=== PATIENT | female | born 1980 | race Caucasian/White ===

== ENCOUNTER 2018-04-14 16:03 | Emergency (ER) | payer MEDICAID, OTHER ==
[~2018-04-14] VITALS: Ht 157.5 cm; Wt 62.0 kg
[~2018-04-14 16:03] MED LIST: NO HOME MEDS; PHEN-786 PO
[2018-04-14 16:15] VITALS: BP 129/78
--- NOTE | 2018-04-14 16:27 | NUR ---
PT EVALUATED IN TRIAGE BY FIORDALIZA GARG, PT PROVIDED URINE SAMPLE, BROUGHT DOWN TO LAB BY NIK LAMB AND WILL WAIT IN LOBBY FOR DISCHARGE PAPERWORK AND INSTRUCTIONS.
[2018-04-14 16:42] LABS: URINE HCG NEGATIVE (NEG)
[2018-04-14 16:52] LABS: UA COLLECTION TYPE CLN CATCH MIDSTREAM
[2018-04-14 16:53] LABS: CLARITY,URINE CLEAR (Clear); COLOR,URINE ORANGE (Yellow)
[2018-04-14] MEDS ORDERED: CEPH-572 PO (16:56)
[2018-04-14 17:07] LABS: SQUAMOUS EPITHELIAL CELL,UR FEW /LPF (FEW)
[2018-04-14 17:08] LABS: BACTERIA,URINE FEW /HPF (Neg); RBC,URINE NONE SEEN /HPF (0-2)
== END 2018-04-14 17:22 | disposition home or self-care (01) ==
LOC: ER 16:03
DX: N39.0 Urinary tract infection, site not specified (principal); F15.90 Other stimulant use, unspecified, uncomplicated; F11.90 Opioid use, unspecified, uncomplicated; F19.90 Other psychoactive substance use, unspecified, uncomplicated; Z88.8 Allergy status to other drugs, medicaments and biological substances
CPT/HCPCS: 81001; 81025; 87077; 87088; 87186; 99283

== ENCOUNTER 2018-04-17 21:05 | Emergency (ER) | payer OTHER ==
[~2018-04-17] VITALS: Ht 157.5 cm; Wt 62.0 kg
[~2018-04-17 21:05] MED LIST changes: +CEPH-572 PO
[2018-04-17 21:18] VITALS: BP 131/89
[2018-04-17] MEDS ORDERED: CIPR-259 PO (22:17)
== END 2018-04-17 22:36 | disposition home or self-care (01) ==
LOC: ER 21:06
DX: N39.0 Urinary tract infection, site not specified (principal); F15.90 Other stimulant use, unspecified, uncomplicated; F11.90 Opioid use, unspecified, uncomplicated; Z88.8 Allergy status to other drugs, medicaments and biological substances; Z79.899 Other long term (current) drug therapy
CPT/HCPCS: 99283

== ENCOUNTER 2020-01-20 08:52 | Emergency (ER) | payer MEDICAID ==
[~2020-01-20] VITALS: Ht 157.5 cm; Wt 67.0 kg
[~2020-01-20 08:52] MED LIST changes: -CEPH-572 PO
[2020-01-20 08:57] VITALS: BP 166/103
[2020-01-20] MEDS ORDERED: acetaminophen 325mg tablet PO ONE (09:35)
[2020-01-20 09:59] LABS: CLARITY,URINE CLEAR (Clear); COLOR,URINE STRAW (Yellow); GLUCOSE, URINE NEGATIVE (Neg); KETONES,URINE NEGATIVE (Neg); LEUKOCYTE ESTERASE ,URINE NEGATIVE (Neg); NITRITES, URINE NEGATIVE (Neg); OCCULT BLOOD,URINE NEGATIVE (Neg); PROTEIN,URINE NEGATIVE (Neg); UROBILINOGEN,URINE 0.2 E.U/dL (0.2-1.0)
[2020-01-20] MEDS ORDERED: azithromycin 250mg tablet PO ONE (10:00)
[2020-01-20] MEDS ORDERED: CefTRIAXone 250MG IM Kit w/LIDOcaine IM ONE (10:00)
[2020-01-20 10:03] LABS: URINE HCG NEGATIVE (NEG)
[2020-01-20 10:04] LABS: UA COLLECTION TYPE CLN CATCH MIDSTREAM
[2020-01-20 10:22] LABS: URINE AMPHETAMINE SCREEN POSITIVE (Neg); URINE BARBITUATE SCREEN NEGATIVE (Neg); URINE BENZODIAZEPINES SCREEN NEGATIVE (Neg); URINE CANNABINOID SCREEN NEGATIVE (Neg); URINE COCAINE SCREEN NEGATIVE (Neg); URINE METHADONE SCREEN NEGATIVE (Neg); URINE OPIATE SCREEN POSITIVE (Neg); URINE PHENCYCLIDINE SCREEN NEGATIVE (Neg)
[2020-01-20] MEDS ORDERED: DOXY100C2 PO (10:23)
== END 2020-01-20 10:39 | disposition home or self-care (01) ==
LOC: ER 08:52
DX: N73.9 Female pelvic inflammatory disease, unspecified (principal); R10.30 Lower abdominal pain, unspecified; F41.9 Anxiety disorder, unspecified; F15.90 Other stimulant use, unspecified, uncomplicated; F11.90 Opioid use, unspecified, uncomplicated; F19.90 Other psychoactive substance use, unspecified, uncomplicated; Z86.19 Personal history of other infectious and parasitic diseases; Z87.440 Personal history of urinary (tract) infections; Z72.89 Other problems related to lifestyle; Z88.6 Allergy status to analgesic agent; Z79.2 Long term (current) use of antibiotics
CPT/HCPCS: 80305; 81003; 81025; 87210; 96372; 99283; J0696; Q0112; 36415; 87491

== ENCOUNTER 2020-04-20 21:48 | Emergency (ER) | payer MEDICAID ==
[~2020-04-20] VITALS: Ht 157.5 cm; Wt 53.5 kg
[2020-04-20 22:36] VITALS: BP 130/66
== END 2020-04-20 22:39 | disposition home or self-care (01) ==
LOC: ER 21:49
DX: Z11.3 Encounter for screening for infections with a predominantly sexual mode of transmission (principal); F15.90 Other stimulant use, unspecified, uncomplicated; Z86.19 Personal history of other infectious and parasitic diseases; Z87.440 Personal history of urinary (tract) infections; Z72.89 Other problems related to lifestyle; Z88.8 Allergy status to other drugs, medicaments and biological substances; Z79.899 Other long term (current) drug therapy
CPT/HCPCS: 99281

== ENCOUNTER 2020-05-01 23:03 | Emergency (ER) | payer MEDICAID ==
[~2020-05-01] VITALS: Ht 157.5 cm; Wt 65.0 kg
[2020-05-01 23:08] VITALS: BP 126/79
[2020-05-01 23:24] LABS: URINE HCG NEGATIVE (NEG)
[2020-05-01 23:26] LABS: CLARITY,URINE CLEAR (Clear); COLOR,URINE YELLOW (Yellow); GLUCOSE, URINE NEGATIVE (Neg); KETONES,URINE NEGATIVE (Neg); LEUKOCYTE ESTERASE ,URINE NEGATIVE (Neg); NITRITES, URINE NEGATIVE (Neg); OCCULT BLOOD,URINE NEGATIVE (Neg); PH,URINE 6.5 (4.8-8.0); PROTEIN,URINE NEGATIVE (Neg); UROBILINOGEN,URINE 0.2 E.U/dL (0.2-1.0)
[2020-05-01 23:39] LABS: UA COLLECTION TYPE CLN CATCH MIDSTREAM
[2020-05-01] MEDS ORDERED: phenazopyridine 100mg tablet PO ONE (23:40)
[2020-05-01] MEDS ORDERED: metroNIDAZOLE 500mg tablet PO ONE (23:40)
[2020-05-01] MEDS ORDERED: fluconazole 150mg tablet PO ONE (23:40)
[2020-05-01] MEDS ORDERED: azithromycin 250mg tablet PO ONE (23:40)
[2020-05-01] MEDS ORDERED: CefTRIAXone 250MG IM Kit w/LIDOcaine IM ONE (23:40)
[2020-05-02] MEDS ORDERED: PHEN-716 PO (00:04)
[2020-05-02] MEDS ORDERED: DOXY100C76 PO (00:06)
[2020-05-02] MEDS ORDERED: penicillin G benzathine 1.2 million unit/2ml syringe IM ONE (00:20)
== END 2020-05-02 00:49 | disposition home or self-care (01) ==
LOC: ER 23:04
DX: Z11.3 Encounter for screening for infections with a predominantly sexual mode of transmission (principal); R10.2 Pelvic and perineal pain; R30.0 Dysuria; F41.9 Anxiety disorder, unspecified; F15.90 Other stimulant use, unspecified, uncomplicated; F11.90 Opioid use, unspecified, uncomplicated; F19.90 Other psychoactive substance use, unspecified, uncomplicated; Z86.19 Personal history of other infectious and parasitic diseases; Z87.440 Personal history of urinary (tract) infections; Z72.89 Other problems related to lifestyle; Z88.6 Allergy status to analgesic agent; Z79.2 Long term (current) use of antibiotics; Z79.899 Other long term (current) drug therapy
CPT/HCPCS: 36415; 81003; 81025; 86592; 87491; 87591; 96372; 99284; J0561; J0696; J3490

== ENCOUNTER 2023-07-21 13:07 | Emergency (ER) | payer MEDICAID ==
[~2023-07-21 13:07] MED LIST changes: +PHEN-716 PO
== END 2023-07-21 14:37 | disposition left against medical advice (07) ==
LOC: EEVIPCON 13:07 → ER 13:07
DX: S59.909A Unspecified injury of unspecified elbow, initial encounter (principal); Z53.21 Procedure and treatment not carried out due to patient leaving prior to being seen by health care provider; X58.XXXA Exposure to other specified factors, initial encounter; Y93.89 Activity, other specified; Y92.89 Other specified places as the place of occurrence of the external cause; Y99.8 Other external cause status

== ENCOUNTER 2025-01-22 17:50 | Emergency (ER) | payer MEDICAID ==
[~2025-01-22] VITALS: Ht 157.5 cm; Wt 67.8 kg
[2025-01-22 17:54] VITALS: BP 112/70; PULSE 91; RESP 16; O2SAT 100
[2025-01-22 18:14] LABS: LEUKOCYTE ESTERASE ,URINE MODERATE (Neg); NITRITES, URINE NEGATIVE (Neg); OCCULT BLOOD,URINE TRACE-INTACT (Neg)
[2025-01-22 18:20] LABS: URINE HCG NEGATIVE (NEG)
[2025-01-22 18:23] LABS: UA COLLECTION TYPE CLN CATCH MIDSTREAM
[2025-01-22 18:25] LABS: SQUAMOUS EPITHELIAL CELL,UR FEW /LPF (FEW)
--- NOTE | 2025-01-22 20:03 | Physician Documentation ---
History of Present Illness ~ General Chief Complaint: Multiple Medical Complaints Stated Complaint: UTI SYMPTOMS/ TOOTH PAIN Time Seen by MD: 19:14 Primary Medical Doctor: SHILA ALEMAN IN [facility] Source: patient Mode of Arrival: POV Exam Limitations: no limitations History of Present Illness Initial Comments Ms. Dias is a 44 y/o female who presents with c/o tooth pain as well as the possibility of a UTI/STI. She states that she has had tooth pain for about a month and knows that she needs to follow-up with a Dentist but has had a diffic ult time finding one that accepts Medi-Tera. Pain is worse with eating/drinking. No recent trauma. No neck pain. No pain with swallowing. No difficulty handling oral secretions. With regards to UTI, she states that she is involved in a relationship and her partner has given her STI's previously and she thinks she may have Trichomonas. She is also c/o burning with urination and feels it may also be a UTI but is unsure. Denies hematuria. No ABD pain. No BRBPR or melena. Medication Reconciliation Allergies: Coded Allergies: naproxen (Verified Adverse Reaction, Unknown, GETS DIZZY WITH HIGH DOSES, 05/01/20) Uncoded Allergies: WALNUTS (Allergy, Mild, 03/22/12) ANESTHESIA (Allergy, Unknown, 06/22/14) Scheduled Phenazopyridine HCl (Pyridium), 1 TAB PO Q8H Scheduled PRN Phenazopyridine Hcl (Pyridium tablet), 2 TAB PO Q8H PRN for pain Miscellaneous Medications Home Med List (No Home Medications), (Reported) Past Medical History Past Medical History: Headache, Hepatitis C, UTI, Anxiety Past Surgical History: no surgical history Alcohol Use: Occasionally Drug Use: methamphetamine, heroin, other Lives with: Family Lives In: Home Review of Systems All Other Systems at this time: Reviewed and Negative Physical Exam Physical Exam Vital Signs: RN Vital Signs have been reviewed: Yes, Temperature: 98.0, Source: Temporal, Heart Rate: 91, Respiratory Rate: 16, BP: 112/70, Pulse Oximetry: 100, Weight: 67.800 Oxygen Flow Rate: 0 Physical Exam GEN: Alert and oriented and in NAD. HEENT: NC/AT. PERRLA. No scleral icterus. MMM. No oral lesions. NECK: Supple. No JVD. CHEST: RRR. No M/G/T. LUNGS: CTA B. No W/R/R. ABD: Soft. NTND. + BS. No rebounding or guarding. BACK: No CVA TTP. EXT: No c/c/e. NEURO: Alert and oriented x 4. Cooperative. Sensorimotor intact x 4 extremities. Progress Results/Orders Results/Orders Vital Signs 01/22/25 17:54 Temp 98.0 Pulse 91 Resp 16 B/P (MAP) 112/70 Pulse Ox 100 O2 Flow Rate 0 Laboratory Tests Test 01/22/25 17:57 Urine Specimen Description Cln catch midstream Urine Color Yellow Urine Clarity Cloudy Urine pH 6.0 Urine Specific [place] 1.020 Urine Protein Negative Urine Glucose (UA) Negative Urine Ketones Negative Urine Occult Blood Trace-intact Urine Nitrite Negative Urine Bilirubin Negative Urine Urobilinogen 0.2 Urine Leukocyte Esterase Moderate H Urine RBC 0-2 Urine WBC Tntc H Urine Squamous Epithelial Cells Few Urine Bacteria 2+ Urine Culture Indicated Indicated Volume Urine Centrifuged 10 ml Urine HCG, Qualitative Negative Urine Comment Microbiology Date/Time Source Procedure Growth Status 01/22/25 18:24 Urine Clean Catch Midstream Urine Culture - Preliminary Culture received. Resulted Medical Decision Making Additional information obtaine: N/A Findings While here in the ED, she remained hemodynamically normal with ABC's intact and in NAD. She is afebrile and nontoxic. I reviewed her labs and she has a UTI; culture pending. She states that she responds well to Macrobid. First dose provided here in the ED. With her report of Trichomonas infections in the past, she is requesting to be treated for it again tonight. She was given 2g Metronidazole here in the ED. She has poor dentition and has several fractured teeth. No large fluid collections requiring I and D. No lymphadenopathy. MMM. No oral lesions. Uvula midline. She was treated with IM Ketorolac. She is to follow-up with her Dentist. Given follow-up and return instructions. She voiced understanding and agreement with d/c instructions. Differential Diagnosis UTI STI Sepsis Pyelonephritis Ectopic Ureterolithiais Departure Disposition: HOME / SELF CARE / HOMELESS Impression: Primary Impression: Screening for STD (sexually transmitted disease) Additional Impression: Urinary tract infection Condition: Improved Discharge Instructions: Urinary Tract Infection, Adult, [id number] Referrals: NO PRIMARY CARE PROVIDER (PCP) Prescriptions Nitrofurantoin Monohyd/M-Cryst (Macrobid 100 mg Capsule) 100 Mg Capsule 1 CAP PO Q12H for 5 Days, #10 CAP 0 Refills Prov: DIANA GODINEZ MD 01/22/25 Comments Take medications as prescribed. Follow-up with your Dentist and Family Physician. Return to the Emergency Department if there are any additional concerns. Education Educated: Patient Educated regarding: diagnosis, treatment Signature Scribe Signature: N/A Attestation: N/A DIANA GODINEZ MD Jan 22, 2025 20:03
[2025-01-22] MEDS ORDERED: NITR100C6 PO (20:04)
[2025-01-22] MEDS: nitrofuran monohydrate/nitrofuran macrocrysal 100 MG (MacroBID) capsule PO ONE (20:16)
[2025-01-22] MEDS: ketorolac trometh 15mg/ml vial 15 MG/ML ML IM ONE (20:16)
[2025-01-22 20:24] VITALS: TEMP 98
== END 2025-01-22 20:25 | disposition home or self-care (01) ==
LOC: ER 17:51
DX: Z11.3 Encounter for screening for infections with a predominantly sexual mode of transmission (principal); N39.0 Urinary tract infection, site not specified; F41.9 Anxiety disorder, unspecified; F15.90 Other stimulant use, unspecified, uncomplicated; F11.90 Opioid use, unspecified, uncomplicated; F19.90 Other psychoactive substance use, unspecified, uncomplicated; Z88.6 Allergy status to analgesic agent; Z87.440 Personal history of urinary (tract) infections; Z86.19 Personal history of other infectious and parasitic diseases; Z79.899 Other long term (current) drug therapy; Z72.89 Other problems related to lifestyle
CPT/HCPCS: 36415; 81001; 81025; 87088; 87491; 87591; 96372; 99283; J1885; 87077; 87186